=== PATIENT | female | born 1940 | race Caucasian/White ===

== ENCOUNTER 2017-01-27 21:23 | Inpatient (IN) | payer OTHER, MEDICARE ==
[~2017-01-27] VITALS: Ht 162.6 cm; Wt 43.9 kg
[~2017-01-27 21:23] MED LIST: ALBU6.7H INH; ATOR40TA49 PO; CARV3.125 PO; CYMB60CA PO; DOCU1CAP39 PO; DUONI NEB; GABA300 PO; MIRTA15 PO; MONT10 PO; MVI PO; PANT40IN3 PO; PROC1TAB8 PO; ROPI.5 PO; SENN8.6T19 PO; SYMB160A INH; THEO200T27 PO; TIOT18I INH; TRAM50 PO; Z.0.OXYGEN INH
[2017-01-27 21:31] VITALS: BP 157/103; PULSE 112; RESP 24; TEMP 98.1; O2SAT 99
[2017-01-27 21:36] VITALS: BP 157/103; PULSE 113; RESP 28; O2SAT 98
[2017-01-27] MEDS ORDERED: TRAM50TA PO (21:49)
[2017-01-27] MEDS ORDERED: GABA600T PO (21:49)
[2017-01-27] MEDS ORDERED: CARV12.52 PO (21:49)
[2017-01-27] MEDS ORDERED: LORA-373 PO (21:49)
[2017-01-27] MEDS ORDERED: LOVA20TA PO (21:49)
[2017-01-27] MEDS ORDERED: NITR0.4S SL (21:49)
[2017-01-27] MEDS ORDERED: AMLO5TAB2 PO (21:49)
[2017-01-27] MEDS ORDERED: MONT10TA4 PO (21:49)
[2017-01-27] MEDS ORDERED: CARV6.252 PO (21:49)
[2017-01-27] MEDS ORDERED: PANT40TA3 PO (21:49)
[2017-01-27] MEDS ORDERED: SULF1TAB23 PO (21:49)
[2017-01-27] MEDS ORDERED: IBUP-232 PO (21:49)
[2017-01-27] MEDS ORDERED: FLUT1INH7 INH (21:49)
[2017-01-27] MEDS ORDERED: ROPI0.5T PO (21:49)
[2017-01-27] MEDS ORDERED: PARO20TA2 PO (21:49)
[2017-01-27] MEDS: RESP: ALBUTEROL 2.5 MG/IPRATROPIUM 0.5 MG NEB (SCH) INH (21:55)
[2017-01-27 22:07] LABS: AUTOMATED NEUTROPHIL # 5.4 TH/MM3 (1.8-7.7); BASOPHIL # 0.1 TH/MM3 (0-0.2); BASOPHIL % 1.2 % (0.0-2.0); EOSINOPHIL # 0.2 TH/MM3 (0-0.4); HEMATOCRIT 40.3 % (35.0-46.0); HEMO FLAGS DIFF FINAL; LYMPH % 24.1 % (9.0-44.0); MEAN CELL VOLUME 85.3 FL (80.0-100.0); MONO % 7.6 % (0.0-8.0); NEUT % 65.1 % (16.0-70.0); PLATELET COUNT 247 TH/MM3 (150-450); RED BLOOD COUNT 4.73 MIL/MM3 (4.00-5.30); RED CELL DISTRIBUTION WIDTH 16.7 % (11.6-17.2); WHITE BLOOD COUNT 8.4 TH/MM3 (4.0-11.0)
--- NOTE | 2017-01-27 22:31 | PD ---
HPI Chief Complaint: Respiratory Symptoms Time Seen by Provider: 21:44 Travel History International Travel<30 days: No Contact w/Intl Traveler<30days: No Traveled to known affect area: No History of Present Illness HPI This 76 year-old woman presents to the emergency department cleaning shortness of breath ongoing for the past several days associated with increased cough, increased sputum production. She takes home albuterol which wasn't really helping. She is a history of COPD, is on 2.5 L nasal cannula at home. No chest pain. Family called EMS. She was given 2 albuterol and 125 mg of IV so a Medrol in route. Please were initially on scene because patient was making passive wish statements regarding her worsening trouble breathing and not being able to live like that. Patient denies any suicidality or ongoing similar symptoms now. History Past Medical History Narrative Medical COPD Hypertension Menopausal: Yes Social History Alcohol Use: No Tobacco Use: Yes (/ PPD) Allergies-Medications (Allergen,Severity, Reaction): Coded Allergies: Benadryl (Verified Allergy, Severe, TACHYCARDIA, 01/27/17) Reported Meds & Prescriptions Reported Meds & Active Scripts Active Reported Sulfamethoxazole-Trimethoprim 800-160 Mg Tab 1 Tab PO BID Pantoprazole (Pantoprazole Sodium) 40 Mg Tab 40 Mg PO DAILY Tramadol (Tramadol HCl) 50 Mg Tab 50 Mg PO Q6H PRN Breo Ellipta Inh (Fluticasone/Vilanterol) 200-25 Mcg/Act Inh 1 Puff INH DAILY Use daily at the same time. Paroxetine (Paroxetine HCl) 20 Mg Tab 20 Mg PO DAILY Nitrostat SL (Nitroglycerin) 0.4 Mg Subl 0.4 Mg SL DIRECTED PRN 1 tablet under the tongue as needed for chest pain. Repeat every 5 minutes for a total of 3 DOSES or call 911 if NO relief. Lovastatin 20 Mg Tab 20 Mg PO DAILY Amlodipine (Amlodipine Besylate) 5 Mg Tab 5 Mg PO DAILY Montelukast (Montelukast Sodium) 10 Mg Tab 10 Mg PO HS Lorazepam 0.5 Mg Tab 0.5 Mg PO HS PRN Gabapentin 600 Mg Tab 600 Mg PO BID Ropinirole 0.5 Mg Tab 0.5 Mg PO HS Carvedilol 6.25 Mg Tab 6.25 Mg PO HS Carvedilol 12.5 Mg Tab 12.5 Mg PO AC BREAKFAST Ibuprofen 600 Mg Tab 600 Mg PO Q6H PRN Review of Systems Except as stated in HPI: all other systems reviewed are Neg Physical Exam Narrative GENERAL: Thin 76 year-old woman, mild respiratory distress. SKIN: Focused skin assessment warm/dry. NECK: Trachea midline. No JVD. CARDIOVASCULAR: Regular rate and rhythm. No murmur appreciated. RESPIRATORY: Moderate diffuse wheezing with prolonged expiratory phase. Mild respiratory distress. GASTROINTESTINAL: Abdomen soft, non-tender, nondistended. Hepatic and splenic margins not palpable. MUSCULOSKELETAL: No obvious deformities. No edema. Decreased muscle bulk. NEUROLOGICAL: Awake and alert. No obvious cranial nerve deficits. Motor grossly within normal limits. Normal speech. PSYCHIATRIC: Appropriate mood and affect; insight and judgment normal. Data Data Last Documented VS Vital Signs Date Time Temp Pulse Resp B/P Pulse Ox O2 Delivery O2 Flow Rate FiO2 01/27/17 22:35 100 16 154/94 97 2 01/27/17 21:36 Nasal Cannula 01/27/17 21:31 98.1 Orders Complete Blood Count With Diff (01/27/17 21:42) Comprehensive Metabolic Panel (01/27/17 21:42) Chest, Single Ap (01/27/17 ) Influenzae A/B Antigen (01/27/17 21:42) Albuterol-Ipratropium Neb (Duoneb Neb) (01/27/17 21:45) Acetaminophen (Tylenol) (01/27/17 22:45) Admit Order (Ed Use Only) (01/27/17 ) Labs Laboratory Tests Test 01/27/17 21:30 White Blood Count 8.4 TH/MM3 Red Blood Count 4.73 MIL/MM3 Hemoglobin 13.7 GM/DL Hematocrit 40.3 % Mean Corpuscular Volume 85.3 FL Mean Corpuscular Hemoglobin 29.0 PG Mean Corpuscular Hemoglobin 34.0 % Concent Red Cell Distribution Width 16.7 % Platelet Count 247 TH/MM3 Mean Platelet Volume 8.8 FL Neutrophils (%) (Auto) 65.1 % Lymphocytes (%) (Auto) 24.1 % Monocytes (%) (Auto) 7.6 % Eosinophils (%) (Auto) 2.0 % Basophils (%) (Auto) 1.2 % Neutrophils # (Auto) 5.4 TH/MM3 Lymphocytes # (Auto) 2.0 TH/MM3 Monocytes # (Auto) 0.6 TH/MM3 Eosinophils # (Auto) 0.2 TH/MM3 Basophils # (Auto) 0.1 TH/MM3 CBC Comment DIFF FINAL Differential Comment Sodium Level 141 MEQ/L Potassium Level 4.1 MEQ/L Chloride Level 104 MEQ/L Carbon Dioxide Level 29.2 MEQ/L Anion Gap 8 MEQ/L Blood Urea Nitrogen 13 MG/DL Creatinine 0.73 MG/DL Estimat Glomerular Filtration 78 ML/MIN Rate Random Glucose 104 MG/DL Calcium Level 9.1 MG/DL Total Bilirubin 0.5 MG/DL Aspartate Amino Transf 25 U/L (AST/SGOT) Alanine Aminotransferase 18 U/L (ALT/SGPT) Alkaline Phosphatase 64 U/L Total Protein 6.5 GM/DL Albumin 3.6 GM/DL [facility] Medical Decision Making Medical Screen Exam Complete: Yes Emergency Medical Condition: Yes Interpretation(s) My review of EKG: Sinus tachycardia rate of 112, left axis deviation, probable right bundle branch block, no definite evidence of acute ischemia. LABS: CBC unremarkable CMP unremarkable Chest x-ray: Suspected chronic hyperinflation and COPD. Differential Diagnosis COPD exacerbation, pneumonia, influenza, URI, other Narrative Course Medical decision making INITIAL: This 76 year-old woman known COPD who presents emergent part evidence of COPD exacerbation with increased cough, increased sputum production, increased shortness of breath, improvement with bronchodilators and steroids. We'll check x-ray, labs, EKG, reassess. FINAL: Patient improved after initial treatment for COPD exacerbation the still with moderate respiratory distress and tachypnea. We'll plan on admission for observation. Diagnosis Primary Impression: COPD with exacerbation Virgilio Terry MD Jan 27, 2017 22:31
[2017-01-27 22:35] VITALS: BP 154/94; PULSE 100; RESP 16; O2SAT 97
[2017-01-27 22:41] LABS: ALKALINE PHOSPHATASE 64 U/L (45-117); ALT (GPT) 18 U/L (10-53); ANION GAP 8 MEQ/L (5-15); AST (GOT) 25 U/L (15-37); BICARBONATE 29.2 MEQ/L (21.0-32.0); BLOOD UREA NITROGEN 13 MG/DL (7-18); CHLORIDE 104 MEQ/L (98-107); GLOMERULAR FILTRATION RATE 78 ML/MIN (>89); POTASSIUM 4.1 MEQ/L (3.5-5.1); SODIUM (NA) 141 MEQ/L (136-145); TOTAL BILIRUBIN ADULT 0.5 MG/DL (0.2-1.0)
[2017-01-27] MEDS ORDERED: ACETAMINOPHEN 325 MG TAB PO ONE (22:45)
--- NOTE | 2017-01-27 22:52 | RADRPT ---
EXAM DATE/TIME: 01/27/2017 21:56 [facility] COMPARISON: No previous studies available for comparison. INDICATIONS : Shortness of breath MEDICAL HISTORY : None. SURGICAL HISTORY : None. ENCOUNTER: Initial ACUITY: 1 day PAIN SCORE: 0/10 LOCATION: Bilateral chest FINDINGS: The heart size is normal. the lungs are hyperinflated. A definite consolidation is not clearly seen. There is some increased density at the lateral right lower chest likely related to over lap of the breast soft tissues. No effusion is seen. The bones are osteopenic. CONCLUSION: Suspected chronic hyperinflation and COPD. Moe Banks MD on January 27, 2017 at 22:48 Board Certified Radiologist. This report was verified electronically.
[2017-01-27 23:00] VITALS: O2SAT 97
[2017-01-27 23:10] VITALS: BP 134/60; PULSE 92; RESP 18; O2SAT 97
[2017-01-27] MEDS ORDERED: ONDANSETRON HCL 4 MG/2 ML VIAL IVP PRN (23:30)
[2017-01-27] MEDS ORDERED: BISACODYL 10 MG SUPP RECTAL PRN (23:30)
[2017-01-27] MEDS ORDERED: RESP: ALBUTEROL 2.5 MG/IPRATROPIUM 0.5 MG NEB (PRN) NEB (23:30)
[2017-01-27] MEDS ORDERED: ACETAMINOPHEN 325 MG TAB PO PRN (23:30)
[2017-01-27] MEDS ORDERED: MORPHINE SULFATE 4 MG/ML INJ IV PRN (23:30)
--- NOTE | 2017-01-27 23:31 | HHI.HP ---
HPI Service [facility] Primary Care Physician Jairo Murillo MD Admission Diagnosis COPD exacerbation Diagnoses: (1) COPD (chronic obstructive pulmonary disease) Diagnosis: Principal (2) Depression Diagnosis: Principal (3) HTN (hypertension) Diagnosis: Principal (4) Tobacco abuse Diagnosis: Principal Travel History International Travel<30 Days: No Contact w/Intl Traveler <30 Da: No Traveled to Known Affected Are: No History of Present Illness This is a 76-year-old female with a PMH of HTN, Major Depression and COPD, O2 Dependent, who was brought to the ER by EMS secondary to increasing SOB and cough. Per patient, used home nebulizers w/ minimal improvement. S/p Solu- Medrol and Albuterol x2 by EMS. On arrival, BP 154/94, HR 100, O2 sat 97% on 2L NC, Afebrile. CBC unremarkable. Chemistry essentially unremarkable. CXR was suspected chronic hyperinflation and COPD. S/p DuoNeb in ER, however persistent SOB and occasional wheezing. Review of Systems Except as stated in HPI: all other systems reviewed are Neg ROS: 14 point review of systems otherwise negative. Past Family Social History Past Medical History PMH: HTN, Major Depression and COPD, O2 Dependent Past Surgical History PAST SURGICAL HISTORY: Appendectomy, Cholecystectomy, Bladder Surgery Allergies: Coded Allergies: Benadryl (Verified Allergy, Severe, TACHYCARDIA, 01/27/17) Family History PAST FAMILY HISTORY: Reviewed. No h/o DM or CAD Social History PAST SOCIAL HISTORY: Negative for alcohol, tobacco or drugs. Physical Exam Vital Signs Vital Signs Date Time Temp Pulse Resp B/P Pulse Ox O2 Delivery O2 Flow Rate FiO2 01/27/17 22:35 100 16 154/94 97 2 01/27/17 21:36 104 28 98 Nasal Cannula 2 01/27/17 21:36 113 28 157/103 98 2 01/27/17 21:31 98.1 112 24 157/103 99 Physical Exam PE: GENERAL: Elderly female female in no acute distress. HEENT: PERRLA, EOMI. No scleral icterus or conjunctival pallor. No lid lag or facial droop. CARDIOVASCULAR: Regular rate and rhythm. No obvious murmurs to auscultation. No chest tenderness to palpation. RESPIRATORY: No obvious rhonchi, occasional wheezing. Clear to auscultation. Breath sounds mildly decreased at bases bilaterally GASTROINTESTINAL: Abdomen soft, non-tender, nondistended. BS normal. MUSCULOSKELETAL: Extremities without clubbing, cyanosis, or edema. No obvious deformities. NEUROLOGICAL: Awake, alert and oriented x4. No focal neurologic deficits. Moving both upper and lower extremities spontaneously. Laboratory Laboratory Tests Test 01/27/17 21:30 White Blood Count 8.4 Red Blood Count 4.73 Hemoglobin 13.7 Hematocrit 40.3 Mean Corpuscular Volume 85.3 Mean Corpuscular Hemoglobin 29.0 Mean Corpuscular Hemoglobin 34.0 Concent Red Cell Distribution Width 16.7 Platelet Count 247 Mean Platelet Volume 8.8 Neutrophils (%) (Auto) 65.1 Lymphocytes (%) (Auto) 24.1 Monocytes (%) (Auto) 7.6 Eosinophils (%) (Auto) 2.0 Basophils (%) (Auto) 1.2 Neutrophils # (Auto) 5.4 Lymphocytes # (Auto) 2.0 Monocytes # (Auto) 0.6 Eosinophils # (Auto) 0.2 Basophils # (Auto) 0.1 CBC Comment DIFF FINAL Differential Comment Sodium Level 141 Potassium Level 4.1 Chloride Level 104 Carbon Dioxide Level 29.2 Anion Gap 8 Blood Urea Nitrogen 13 Creatinine 0.73 Estimat Glomerular Filtration 78 Rate Random Glucose 104 Calcium Level 9.1 Total Bilirubin 0.5 Aspartate Amino Transf 25 (AST/SGOT) Alanine Aminotransferase 18 (ALT/SGPT) Alkaline Phosphatase 64 Total Protein 6.5 Albumin 3.6 Date/Time Procedure Status Source Growth 01/27/17 21:40 Influenza Types A,B Antigen (BECCA) - Final Complete Nasal Washing NEGATIVE FOR FLU A AND B ANTIGEN.... Result Diagram: 01/27/17212901/27/172129 Assessment and Plan Problem List: (1) COPD (chronic obstructive pulmonary disease) ICD Code: J44.9 Status: Acute (2) HTN (hypertension) ICD Code: I10 Status: Acute (3) Depression ICD Code: F32.9 Status: Acute (4) Tobacco abuse ICD Code: Z72.0 Status: Acute Assessment and Plan A/P: 1. COPD: Chronic Respiratory Failure w/ Acute Exacerbation, O2 Dependent on 2.5L NC at home, O2 sat 97% on 2L NC while in ER. +wheezing, decreased breath sounds on exam, s/p Solu-Medrol and DuoNeb in ER w/ some improvement. CXR w/ hyperinflation/COPD, images reviewed by me. Continue Solu-Medrol, DuoNeb, Symbicort, Mucinex, monitor O2. 2. HTN: Resume home medications, monitor BP. 3. Depression: Resume home Paroxetine. No acute depression noted. 4. DVT Prophylaxis: SCD/Teds. 5. Social work for d/c planning as needed. 6. Case discussed w/ ER physician at length. Trudy Bang MD Jan 27, 2017 23:30
[2017-01-28] VITALS (12 sets, daily range): BP systolic 81–130; BP diastolic 54–65; PULSE 62–95; RESP 16–20; TEMP 97.5–98.8; O2SAT 94–98
[2017-01-28] MEDS: methylPREDNISolone SOD SUCC 40 MG/1 ML VIAL IV PUSH SCH ×5 (00:14→23:20)
[2017-01-28] MEDS ORDERED: SODIUM CHLORID 0.9% 500 ML INJ 500 ML IV ONE (04:00)
[2017-01-28] MEDS: SODIUM CHLORIDE 0.9% FLUSH 10 ML FLUSH IV FLUSH PRN ×2 (06:27→23:21)
[2017-01-28] MEDS: PANTOPRAZOLE SOD 40 MG DELAYED RELEASE TAB PO SCH (06:27)
[2017-01-28] MEDS: CARVEDILOL 12.5 MG TAB PO SCH (06:27)
[2017-01-28 06:44] LABS: AUTOMATED NEUTROPHIL # 2.9 TH/MM3 (1.8-7.7); EOSINOPHIL % 0.5 % (0.0-4.0); HEMATOCRIT 41.1 % (35.0-46.0); LYMPH % 7.7 % (9.0-44.0); LYMPHOCYTE # 0.2 TH/MM3 (1.0-4.8); MEAN CELL VOLUME 86.7 FL (80.0-100.0); MEAN CORPUSCULAR HEMOGLOBIN 27.4 PG (27.0-34.0); MEAN CORPUSCULAR HGB CONC 31.6 % (32.0-36.0); MONO % 1.4 % (0.0-8.0); NEUT % 90.4 % (16.0-70.0); PLATELET COUNT 189 TH/MM3 (150-450); RED BLOOD COUNT 4.74 MIL/MM3 (4.00-5.30); RED CELL DISTRIBUTION WIDTH 16.7 % (11.6-17.2); WHITE BLOOD COUNT 3.2 TH/MM3 (4.0-11.0)
[2017-01-28 06:57] LABS: HEMO FLAGS AUTO DIFF
[2017-01-28 07:03] LABS: ALT (GPT) 18 U/L (10-53); ANION GAP 10 MEQ/L (5-15); AST (GOT) 10 U/L (15-37); BICARBONATE 25.6 MEQ/L (21.0-32.0); BLOOD UREA NITROGEN 13 MG/DL (7-18); CHLORIDE 106 MEQ/L (98-107); GLOMERULAR FILTRATION RATE 90 ML/MIN (>89); POTASSIUM 3.6 MEQ/L (3.5-5.1); SODIUM (NA) 142 MEQ/L (136-145)
[2017-01-28 07:04] LABS: ALKALINE PHOSPHATASE 58 U/L (45-117); TOTAL BILIRUBIN ADULT 0.3 MG/DL (0.2-1.0)
[2017-01-28] MEDS: RESP: ALBUTEROL 2.5 MG/IPRATROPIUM 0.5 MG NEB (SCH) NEB ×4 (07:08→20:34)
[2017-01-28] MEDS: SODIUM CHLORIDE 0.9% FLUSH 10 ML FLUSH IV FLUSH SCH ×2 (09:20→19:53)
[2017-01-28] MEDS: BUDESONIDE-FORMOTEROL 160/4.5 MCG INHALER INH SCH ×2 (09:20→19:54)
[2017-01-28] MEDS: guaiFENesin E.R. 600 MG TAB PO SCH ×2 (09:20→19:50)
[2017-01-28] MEDS: GABAPENTIN 300 MG CAP PO SCH ×2 (09:20→19:53)
[2017-01-28] MEDS: PARoxetine HCL 20 MG TAB PO SCH (09:20)
[2017-01-28] MEDS: amLODIPine BESYLATE 5 MG TAB PO SCH (09:21)
[2017-01-28 10:10] LABS: BANDS 16 % (0-6); POLYS (SEG NEUTROPHILS) 77 % (16-70); WBC DIFF SAMPLE 100
[2017-01-28 10:11] LABS: PLATELET ESTIMATE SMEAR NORMAL (NORMAL); PLATELET MORPHOLOGY NORMAL (NORMAL); SCAN/DIFF FINAL DIFF MANUAL
--- NOTE | 2017-01-28 10:16 | HHI.PR ---
Subjective Remarks Follow up for COPD exacerbation. The patient reports recent worsening SOB and TIMMONS with cough but no fevers/chills. She has improved slightly since her arrival. The patient uses 2.5-3L O2 via NC at home. She also has Symbicort, albuterol inhaler, nebulizer. She does not see a computer systems manager regularly however believes she has been referred to Dr. Clyde Flaherty in the past. She is inquiring about SNF vs SNF placement, unable to care for self recently. Objective Vitals Vital Signs Date Time Temp Pulse Resp B/P Pulse Ox O2 Delivery O2 Flow Rate FiO2 01/28/17 09:09 97.8 67 18 118/60 95 01/28/17 07:08 94 Nasal Cannula 2.00 01/28/17 04:56 98.7 88 18 130/59 97 01/28/17 01:25 84 01/28/17 01:17 98.8 91 18 81/56 98 01/28/17 00:19 95 16 121/63 96 2 01/27/17 23:10 92 18 134/60 97 2 01/27/17 23:00 97 Nasal Cannula 2.00 01/27/17 22:35 100 16 154/94 97 2 01/27/17 21:36 104 28 98 Nasal Cannula 2 01/27/17 21:36 113 28 157/103 98 2 01/27/17 21:31 98.1 112 24 157/103 99 Result Diagram: 01/28/17 0607 01/28/17 0607 Imaging Last Impressions Chest X-Ray 01/27/17 0000 Signed Impressions: Service Date/Time: Friday, January 27, 2017 21:56 - CONCLUSION: Suspected chronic hyperinflation and COPD. Moe Banks MD Objective Remarks GENERAL: Well-nourished, well-developed thin elderly female patient in [facility]. SKIN: Warm and dry. No rash. HEENT: Normocephalic. Atraumatic.Pupils equal and round. Mucous membranes pink and moist. NECK: Supple. Trachea midline. CARDIOVASCULAR: Regular rate and rhythm. S1, S2 noted. No murmur appreciated. RESPIRATORY: No accessory muscle use. Very poor air movement throughout all lung fischer. Breath sounds equal bilaterally. GASTROINTESTINAL: Abdomen soft, non-tender, nondistended. Normoactive bowel sounds x4. MUSCULOSKELETAL: No obvious deformities. Extremities without clubbing, cyanosis , or edema. NEUROLOGICAL: Awake and alert. No obvious cranial nerve deficits. Motor grossly within normal limits. Normal speech. PSYCHIATRIC: Appropriate mood and affect; insight and judgment normal. Medications and IVs Current Medications Medications (Trade) Dose Ordered Sig/Raimundo Route Start Time Stop Time Status Last Admin (SoluMEDROL INJ) 40 mg Q6HR IV PUSH 01/28/17 00:00 01/28/17 06:27 (Symbicort 160-4.5 Inh) 2 puff Q12HR INH 01/28/17 09:00 01/28/17 09:20 (Mucinex Er) 600 mg BID PO 01/28/17 09:00 01/28/17 09:20 (NS Flush) 2 ml UNSCH PRN IV FLUSH 01/27/17 23:30 01/28/17 06:27 (NS Flush) 2 ml BID IV FLUSH 01/28/17 09:00 01/28/17 09:20 (Zofran Inj) 4 mg Q6H PRN IVP 01/27/17 23:30 (Dulcolax Supp) 10 mg DAILY PRN RECTAL 01/27/17 23:30 (Tylenol) 650 mg Q6H PRN PO 01/27/17 23:30 ([place] 5-325 Mg) 1 tab Q4H PRN PO 01/27/17 23:30 (Morphine Inj) 2 mg Q3H PRN IV 01/27/17 23:30 (Norvasc) 5 mg DAILY PO 01/28/17 09:00 01/28/17 09:21 (Coreg) 6.25 mg HS PO 01/28/17 21:00 (Neurontin) 600 mg BID PO 01/28/17 09:00 01/28/17 09:20 (Ativan) 0.5 mg HS PRN PO 01/27/17 23:30 (Pravachol) 20 mg HS PO 01/28/17 21:00 (Singulair) 10 mg HS PO 01/28/17 21:00 (Protonix) 40 mg DAILY@06 PO 01/28/17 06:00 01/28/17 06:27 (Paxil) 20 mg DAILY PO 01/28/17 09:00 01/28/17 09:20 (Requip) 0.5 mg HS PO 01/28/17 21:00 Urinary Catheter: No Vascular Central Line Catheter: No A/P Problem List: (1) COPD (chronic obstructive pulmonary disease) ICD Code: J44.9 Status: Acute (2) HTN (hypertension) ICD Code: I10 Status: Acute (3) Depression ICD Code: F32.9 Status: Acute (4) Tobacco abuse ICD Code: Z72.0 Status: Acute Assessment and Plan 76-year-old female with a PMH of HTN, Major Depression and COPD, O2 Dependent, who was brought to the ER by EMS secondary to increasing SOB and cough. COPD: Severe Chronic Respiratory Failure w/ Acute Exacerbation, O2 Dependent on 2.5-3L NC at home, O2 sat 97% on 2L NC while in ER. +wheezing, decreased breath sounds on exam. CXR w/ hyperinflation/COPD, images reviewed by me. Continue IV Solu-Medrol, DuoNeb, Symbicort, Mucinex, monitor O2. Start on Levaquin 750mg daily. Outpatient f/up with a computer systems manager. HTN: Resume home medications, monitor BP. Depression: Resume home Paroxetine. No acute depression noted. Inability to Care for Self: case management consult for possible SNF placement. DVT Prophylaxis: SCD/Teds. Written by Yulissa Staples, acting as scribe for Dr. Parada on 01/28/17 at 11:43 All or portions of this note were transcribed by scribe TWAN Beckford. I , Dr. Evan Parada personally performed the history, physical exam, and medical decision making; and confirmed the accuracy of the information in the transcribed note. Authenticated by Dr. Evan Parada on 01/28/17 at 23:14. Discharge Planning Patient inquiring about [facility] vs SNF. Case management consulted to assist with placement. Yulissa Staples PA-C Jan 28, 2017 10:16 Ramy Parada DO Jan 28, 2017 23:15
[2017-01-28] MEDS: ACETAMINOPHEN/HYDROcodone 325 MG/5 MG TAB PO PRN ×2 (11:51→19:54)
[2017-01-28] MEDS: LEVOFLOXACIN 750 MG TAB PO SCH (13:41)
--- NOTE | 2017-01-28 14:30 | EKG ---
Date Performed: 01/27/2017 Time Performed: 21:33:07 PTAGE: 76 years EKG: SINUS TACHYCARDIA POSSIBLE RIGHT ATRIAL ENLARGEMENT LEFT ATRIAL ENLARGEMENT LEFT ANTERIOR F ASCICULAR BLOCK SEPTAL MYOCARDIAL INFARCTION ABNORMAL ECG NO PREVIOUS TRACING DOCTOR: Bao Santoro Interpretating Date/Time 01/28/2017 14:25:22
[2017-01-28] MEDS: CARVEDILOL 6.25 MG TAB PO SCH (19:50)
[2017-01-28] MEDS: PRAVASTATIN SOD 20 MG TAB PO SCH (19:53)
[2017-01-28] MEDS: MONTELUKAST SODIUM 10 MG TAB PO SCH (19:53)
[2017-01-28] MEDS: LORazepam 0.5 MG TAB PO PRN (23:20)
[2017-01-29] VITALS (9 sets, daily range): BP systolic 107–135; BP diastolic 56–68; PULSE 60–88; RESP 14–24; TEMP 97.6–98.8; O2SAT 90–98
[2017-01-29] MEDS: methylPREDNISolone SOD SUCC 40 MG/1 ML VIAL IV PUSH SCH (05:42)
[2017-01-29] MEDS: CARVEDILOL 12.5 MG TAB PO SCH (05:42)
[2017-01-29] MEDS: PANTOPRAZOLE SOD 40 MG DELAYED RELEASE TAB PO SCH (05:42)
[2017-01-29 07:13] LABS: BICARBONATE 29.8 MEQ/L (21.0-32.0); POTASSIUM 4.5 MEQ/L (3.5-5.1)
[2017-01-29 07:24] LABS: AUTOMATED NEUTROPHIL # 12.6 TH/MM3 (1.8-7.7); BASOPHIL % 0.1 % (0.0-2.0); HEMATOCRIT 38.5 % (35.0-46.0); HEMO FLAGS DIFF FINAL; LYMPH % 3.9 % (9.0-44.0); LYMPHOCYTE # 0.5 TH/MM3 (1.0-4.8); MEAN CELL VOLUME 86.3 FL (80.0-100.0); MEAN CORPUSCULAR HGB CONC 31.3 % (32.0-36.0); MONO % 1.7 % (0.0-8.0); NEUT % 94.3 % (16.0-70.0); PLATELET COUNT 212 TH/MM3 (150-450); RED BLOOD COUNT 4.46 MIL/MM3 (4.00-5.30); RED CELL DISTRIBUTION WIDTH 16.8 % (11.6-17.2); WHITE BLOOD COUNT 13.4 TH/MM3 (4.0-11.0)
[2017-01-29] MEDS: RESP: ALBUTEROL 2.5 MG/IPRATROPIUM 0.5 MG NEB (SCH) NEB ×4 (07:49→19:58)
--- NOTE | 2017-01-29 08:14 | HHI.PR ---
Subjective Remarks Follow up for COPD exacerbation. The patient reports continued cough and chest congestion with shortness of breath. No fevers or chills. She also complains of right lower back pain and spasms, not relieved by [place]. Denies any other medical complaints at this time. Objective Vitals Vital Signs Date Time Temp Pulse Resp B/P Pulse Ox O2 Delivery O2 Flow Rate FiO2 01/29/17 07:50 97 Nasal Cannula 2.50 01/29/17 07:49 97.6 65 24 116/65 97 01/29/17 03:34 97.8 79 14 110/68 94 01/29/17 00:12 98.8 72 16 107/56 96 01/28/17 21:29 70 01/28/17 21:10 16 01/28/17 20:37 98 Nasal Cannula 2.00 01/28/17 20:02 97.8 75 18 117/58 97 01/28/17 16:16 97.5 75 20 108/54 98 01/28/17 11:53 97.8 68 20 129/65 97 01/28/17 09:09 97.8 67 18 118/60 95 Result Diagram: 01/29/17 0611 01/29/17 0611 Imaging Last Impressions Chest X-Ray 01/27/17 0000 Signed Impressions: Service Date/Time: Friday, January 27, 2017 21:56 - CONCLUSION: Suspected chronic hyperinflation and COPD. Moe Banks MD Objective Remarks GENERAL: Well-nourished, well-developed thin elderly female patient in [facility]. SKIN: Warm and dry. No rash. HEENT: Normocephalic. Atraumatic.Pupils equal and round. Mucous membranes pink and moist. NECK: Supple. Trachea midline. CARDIOVASCULAR: Regular rate and rhythm. S1, S2 noted. No murmur appreciated. RESPIRATORY: No accessory muscle use. Very poor air movement throughout all lung fischer. Breath sounds equal bilaterally. GASTROINTESTINAL: Abdomen soft, non-tender, nondistended. Normoactive bowel sounds x4. MUSCULOSKELETAL: No obvious deformities. Extremities without clubbing, cyanosis , or edema. Right lumbar paraspinous muscle tight consistent with spasms. NEUROLOGICAL: Awake and alert. No obvious cranial nerve deficits. Motor grossly within normal limits. Normal speech. PSYCHIATRIC: Appropriate mood and affect; insight and judgment normal. Medications and IVs Current Medications Medications (Trade) Dose Ordered Sig/Raimundo Route Start Time Stop Time Status Last Admin (SoluMEDROL INJ) 40 mg Q6HR IV PUSH 01/28/17 00:00 01/29/17 05:42 (Symbicort 160-4.5 Inh) 2 puff Q12HR INH 01/28/17 09:00 01/28/17 19:54 (Mucinex Er) 600 mg BID PO 01/28/17 09:00 01/28/17 19:50 (NS Flush) 2 ml UNSCH PRN IV FLUSH 01/27/17 23:30 01/28/17 23:21 (NS Flush) 2 ml BID IV FLUSH 01/28/17 09:00 01/28/17 19:53 (Zofran Inj) 4 mg Q6H PRN IVP 01/27/17 23:30 (Dulcolax Supp) 10 mg DAILY PRN RECTAL 01/27/17 23:30 (Tylenol) 650 mg Q6H PRN PO 01/27/17 23:30 ([place] 5-325 Mg) 1 tab Q4H PRN PO 01/27/17 23:30 01/28/17 19:54 (Morphine Inj) 2 mg Q3H PRN IV 01/27/17 23:30 (Norvasc) 5 mg DAILY PO 01/28/17 09:00 01/28/17 09:21 (Coreg) 6.25 mg HS PO 01/28/17 21:00 01/28/17 19:50 (Neurontin) 600 mg BID PO 01/28/17 09:00 01/28/17 19:53 (Ativan) 0.5 mg HS PRN PO 01/27/17 23:30 01/28/17 23:20 (Pravachol) 20 mg HS PO 01/28/17 21:00 01/28/17 19:53 (Singulair) 10 mg HS PO 01/28/17 21:00 01/28/17 19:53 (Protonix) 40 mg DAILY@06 PO 01/28/17 06:00 01/29/17 05:42 (Paxil) 20 mg DAILY PO 01/28/17 09:00 01/28/17 09:20 (Requip) 0.5 mg HS PO 01/28/17 21:00 01/28/17 19:53 (Levaquin) 750 mg DAILY@11 PO 01/28/17 13:00 01/28/17 13:41 Urinary Catheter: No Vascular Central Line Catheter: No A/P Problem List: (1) COPD (chronic obstructive pulmonary disease) ICD Code: J44.9 Status: Acute (2) HTN (hypertension) ICD Code: I10 Status: Acute (3) Depression ICD Code: F32.9 Status: Acute (4) Tobacco abuse ICD Code: Z72.0 Status: Acute Assessment and Plan 76-year-old female with a PMH of HTN, Major Depression and COPD, O2 Dependent, who was brought to the ER by EMS secondary to increasing SOB and cough. Acute on Chronic Respiratory Failure secondary to Severe COPD Exacerbation: O2 Dependent on 2.5-3L NC at home. RR 28 upon arrival with labored breathing, + wheezing, decreased breath sounds on exam. CXR w/ hyperinflation/COPD, images reviewed by me. Continue IV Solu-Medrol, DuoNeb, Symbicort, Mucinex, Levaquin 750mg daily. Needs to follow with pulmonology as outpatient. Patient not much better today 01/29, Increased IV Solumedrol to 60mg q6h. Add Acapella. Repeat CXR PA/Lateral. Admit to inpatient. Consider chest CT if no improvement today. HTN: Resume home medications, monitor BP. Depression: Resume home Paroxetine. No acute depression noted. Generalized Weakness, Inability to Care for Self: case management consult for possible SNF placement. Consult PT. Right Lumbar Paraspinous Muscle Spasm/Strain: continue [place] prn. Add Flexeril 5mg q8h prn and Lidoderm patch. DVT Prophylaxis: SCD/Teds. Written by Yulissa Staples, acting as scribe for Dr. Parada on 01/29/17 at 09:50 All or portions of this note were transcribed by [email or web address] Isaac. I , Dr. Evan Parada personally performed the history, physical exam, and medical decision making; and confirmed the accuracy of the information in the transcribed note. Authenticated by Dr. Evan Parada on 01/29/17 at 23:38. Discharge Planning Patient inquiring about RETIREMENT vs SNF. Case management consulted to assist with placement. Yulissa Staples PA-C Jan 29, 2017 08:14 Ramy Parada DO Jan 29, 2017 23:38
[2017-01-29] MEDS: GABAPENTIN 300 MG CAP PO SCH ×2 (08:32→19:48)
[2017-01-29] MEDS: amLODIPine BESYLATE 5 MG TAB PO SCH (08:33)
[2017-01-29] MEDS: guaiFENesin E.R. 600 MG TAB PO SCH ×2 (08:33→19:49)
[2017-01-29] MEDS: PARoxetine HCL 20 MG TAB PO SCH (08:33)
[2017-01-29] MEDS: ACETAMINOPHEN/HYDROcodone 325 MG/5 MG TAB PO PRN ×3 (08:33→19:50)
[2017-01-29] MEDS: BUDESONIDE-FORMOTEROL 160/4.5 MCG INHALER INH SCH ×2 (08:34→19:46)
[2017-01-29] MEDS: SODIUM CHLORIDE 0.9% FLUSH 10 ML FLUSH IV FLUSH SCH ×2 (08:37→19:47)
--- NOTE | 2017-01-29 10:42 | RADRPT ---
EXAM DATE/TIME: 01/29/2017 10:09 [facility] COMPARISON: No previous studies available for comparison. INDICATIONS : None given MEDICAL HISTORY : None given SURGICAL HISTORY : None given ENCOUNTER: None given ACUITY: None given PAIN SCORE: None given LOCATION: None given FINDINGS: PA lateral views the chest demonstrate significant hyperinflation without evidence of focal airspace consolidation or pneumothorax. Moderate cardiomegaly. Pulmonary vasculature appears normal in caliber . Osseous structures are osteopenic but otherwise unremarkable. CONCLUSION: Severe emphysematous change of the lungs. Cardiomegaly without evidence of congestive heart failure. Avril Mar MD on January 29, 2017 at 10:39 Board Certified Radiologist. This report was verified electronically.
[2017-01-29] MEDS ORDERED: CYCLOBENZAPRINE HCL 10 MG TAB PO ONE (11:00)
[2017-01-29] MEDS: SODIUM CHLORIDE 0.9% FLUSH 10 ML FLUSH IV FLUSH PRN ×3 (11:16→19:47)
[2017-01-29] MEDS: LEVOFLOXACIN 750 MG TAB PO SCH (11:16)
[2017-01-29] MEDS: methylPREDNISolone SOD SUCC 125 MG/2 ML VIAL IV PUSH SCH ×3 (11:17→23:19)
[2017-01-29] MEDS: LIDOCAINE HCL 5% PATCH T-DERMAL SCH (11:19)
[2017-01-29] MEDS: CYCLOBENZAPRINE HCL 10 MG TAB PO PRN (17:07)
[2017-01-29] MEDS: CARVEDILOL 6.25 MG TAB PO SCH (19:48)
[2017-01-29] MEDS: PRAVASTATIN SOD 20 MG TAB PO SCH (19:48)
[2017-01-29] MEDS: MONTELUKAST SODIUM 10 MG TAB PO SCH (19:48)
[2017-01-29] MEDS: REMOVE OLD PATCH T-DERMAL SCH (21:00)
[2017-01-29] MEDS: LORazepam 0.5 MG TAB PO PRN (21:56)
[2017-01-30] VITALS (9 sets, daily range): BP systolic 107–131; BP diastolic 54–62; PULSE 65–72; RESP 18–20; TEMP 97.8–98.5; O2SAT 95–98
[2017-01-30] MEDS: CYCLOBENZAPRINE HCL 10 MG TAB PO PRN ×3 (00:57→21:13)
[2017-01-30] MEDS: PANTOPRAZOLE SOD 40 MG DELAYED RELEASE TAB PO SCH (06:27)
[2017-01-30] MEDS: methylPREDNISolone SOD SUCC 125 MG/2 ML VIAL IV PUSH SCH ×3 (06:27→18:00)
[2017-01-30] MEDS: CARVEDILOL 12.5 MG TAB PO SCH (06:32)
[2017-01-30] MEDS: ACETAMINOPHEN/HYDROcodone 325 MG/5 MG TAB PO PRN ×2 (06:32→11:39)
[2017-01-30] MEDS: RESP: ALBUTEROL 2.5 MG/IPRATROPIUM 0.5 MG NEB (SCH) NEB ×4 (08:19→19:49)
[2017-01-30] MEDS: PARoxetine HCL 20 MG TAB PO SCH (09:41)
[2017-01-30] MEDS: GABAPENTIN 300 MG CAP PO SCH ×2 (09:41→21:12)
[2017-01-30] MEDS: guaiFENesin E.R. 600 MG TAB PO SCH ×2 (09:41→21:12)
[2017-01-30] MEDS: LIDOCAINE HCL 5% PATCH T-DERMAL SCH (09:41)
[2017-01-30] MEDS: amLODIPine BESYLATE 5 MG TAB PO SCH (09:41)
[2017-01-30] MEDS: LEVOFLOXACIN 750 MG TAB PO SCH (09:42)
[2017-01-30] MEDS: SODIUM CHLORIDE 0.9% FLUSH 10 ML FLUSH IV FLUSH SCH ×2 (09:43→21:12)
[2017-01-30] MEDS: BUDESONIDE-FORMOTEROL 160/4.5 MCG INHALER INH SCH ×2 (09:43→21:11)
[2017-01-30] MEDS: REMOVE OLD PATCH T-DERMAL SCH (21:00)
[2017-01-30] MEDS: MONTELUKAST SODIUM 10 MG TAB PO SCH (21:12)
[2017-01-30] MEDS: CARVEDILOL 6.25 MG TAB PO SCH (21:12)
[2017-01-30] MEDS: PRAVASTATIN SOD 20 MG TAB PO SCH (21:13)
--- NOTE | 2017-01-30 23:39 | HHI.PR ---
Subjective Remarks Follow up for COPD exacerbation. Patient is currently doing well. No acute concerns. Breathing better. No fever, chills. Objective Vitals Vital Signs Date Time Temp Pulse Resp B/P Pulse Ox O2 Delivery O2 Flow Rate FiO2 01/30/17 20:18 97.8 70 20 121/56 95 01/30/17 19:50 97 Nasal Cannula 3.00 01/30/17 16:00 98.5 72 18 107/54 98 01/30/17 12:45 20 01/30/17 12:00 98.3 71 18 119/57 97 01/30/17 08:22 98 Nasal Cannula 3.00 01/30/17 08:00 98.1 72 18 129/62 95 01/30/17 07:00 98 Nasal Cannula 3.00 01/30/17 04:00 98.0 65 18 131/60 98 01/30/17 00:00 97.9 67 18 116/57 96 I/O 01/29/17 01/29/17 01/29/17 01/30/17 01/30/17 01/30/17 07:00 15:00 23:00 07:00 15:00 23:00 Intake Total 240 ml 240 ml 960 ml 480 ml Balance 240 ml 240 ml 960 ml 480 ml Intake Oral 240 ml 240 ml 960 ml 480 ml IV Total 0 ml # Voids 1 1 1 3 # Bowel Movements 0 0 1 0 Result Diagram: 01/29/17 0611 01/29/17 0611 Imaging Last Impressions Chest X-Ray 01/29/17 0000 Signed Impressions: Service Date/Time: Sunday, January 29, 2017 10:09 - CONCLUSION: Severe emphysematous change of the lungs. Cardiomegaly without evidence of congestive heart failure. Avril Mar MD Objective Remarks GENERAL: AOX3, NAD. SKIN: Warm and dry. HEAD: Normocephalic. EYES: No scleral icterus. No injection or drainage. NECK: Supple, trachea midline. No JVD or lymphadenopathy. CARDIOVASCULAR: Regular rate and rhythm without murmurs, gallops, or rubs. RESPIRATORY: Poor air entry. Mild wheezes on expiration. GASTROINTESTINAL: Abdomen soft, non-tender, nondistended. MUSCULOSKELETAL: No cyanosis, or edema. BACK: Nontender without obvious deformity. No CVA tenderness. Procedures None. A/P Problem List: (1) COPD (chronic obstructive pulmonary disease) ICD Code: J44.9 Status: Acute (2) HTN (hypertension) ICD Code: I10 Status: Acute (3) Depression ICD Code: F32.9 Status: Acute (4) Tobacco abuse ICD Code: Z72.0 Status: Acute Assessment and Plan 76-year-old female with a PMH of HTN, Major Depression and COPD, O2 Dependent, who was brought to the ER by EMS secondary to increasing SOB and cough. Acute on Chronic Respiratory Failure secondary to Severe COPD Exacerbation: O2 Dependent on 2.5-3L NC at home. RR 28 upon arrival with labored breathing, + wheezing, decreased breath sounds on exam. CXR w/ hyperinflation/COPD, images reviewed by me. Continue IV Solu-Medrol, DuoNeb, Symbicort, Mucinex, Levaquin 750mg daily. Needs to follow with pulmonology as outpatient. Continue Acapella. Repeat CXR shows severe emphysema. - Discussed with CM. We will try to arrange SNF. Patient can work with SNF or PCP regarding [facility] arrangement. HTN: Resume home medications, monitor BP. Well controlled. Depression: Resume home Paroxetine. No acute depression noted. Generalized Weakness, Inability to Care for Self: case management consult for possible SNF placement. Consult PT. Right Lumbar Paraspinous Muscle Spasm/Strain: continue Tinnie prn. Flexeril 5mg q8h prn and Lidoderm patch. DVT Prophylaxis: SCD/Teds. Ramy Parada DO Jan 30, 2017 23:39
[2017-01-31] MEDS: methylPREDNISolone SOD SUCC 125 MG/2 ML VIAL IV PUSH SCH ×3 (00:26→12:23)
[2017-01-31 04:20] VITALS: BP 126/61; PULSE 64; RESP 18; TEMP 97.9; O2SAT 96
[2017-01-31] MEDS: PANTOPRAZOLE SOD 40 MG DELAYED RELEASE TAB PO SCH (05:29)
[2017-01-31] MEDS: CARVEDILOL 12.5 MG TAB PO SCH (06:22)
[2017-01-31 08:00] VITALS: BP 131/76; PULSE 68; RESP 18; TEMP 98; O2SAT 94
[2017-01-31] MEDS: SODIUM CHLORIDE 0.9% FLUSH 10 ML FLUSH IV FLUSH SCH (08:38)
[2017-01-31] MEDS: BUDESONIDE-FORMOTEROL 160/4.5 MCG INHALER INH SCH (08:38)
[2017-01-31] MEDS: guaiFENesin E.R. 600 MG TAB PO SCH (08:38)
[2017-01-31] MEDS: PARoxetine HCL 20 MG TAB PO SCH (08:39)
[2017-01-31] MEDS: CYCLOBENZAPRINE HCL 10 MG TAB PO PRN (08:39)
[2017-01-31] MEDS: LIDOCAINE HCL 5% PATCH T-DERMAL SCH (08:39)
[2017-01-31] MEDS: LEVOFLOXACIN 750 MG TAB PO SCH (08:39)
[2017-01-31] MEDS: GABAPENTIN 300 MG CAP PO SCH (08:39)
[2017-01-31] MEDS: amLODIPine BESYLATE 5 MG TAB PO SCH (08:40)
[2017-01-31] MEDS: RESP: ALBUTEROL 2.5 MG/IPRATROPIUM 0.5 MG NEB (SCH) NEB ×3 (09:11→16:24)
[2017-01-31 09:13] VITALS: O2SAT 97
[2017-01-31] MEDS ORDERED: HYDR-3516 PO (10:55)
[2017-01-31] MEDS ORDERED: PRED20 PO (10:55)
[2017-01-31] MEDS ORDERED: LEVA750T PO (10:55)
--- NOTE | 2017-01-31 10:56 | HHI.DS ---
Discharge Summary Admission Date Jan 29, 2017 at 10:30 Discharge Date: Jan 31, 2017 Admitting Diagnosis COPD exacerbation (1) COPD (chronic obstructive pulmonary disease) ICD Code: J44.9 Diagnosis: Principal (2) HTN (hypertension) ICD Code: I10 (3) Depression ICD Code: F32.9 (4) Tobacco abuse ICD Code: Z72.0 Procedures None. Brief History - From Admission This is a 76-year-old female with a PMH of HTN, Major Depression and COPD, O2 Dependent, who was brought to the ER by EMS secondary to increasing SOB and cough. Per patient, used home nebulizers w/ minimal improvement. S/p Solu- Medrol and Albuterol x2 by EMS. On arrival, BP 154/94, HR 100, O2 sat 97% on 2L NC, Afebrile. CBC unremarkable. Chemistry essentially unremarkable. CXR was suspected chronic hyperinflation and COPD. S/p DuoNeb in ER, however persistent SOB and occasional wheezing. CBC/BMP: 01/29/17 0611 01/29/17 0611 Significant Findings Laboratory Tests Test 01/29/17 06:11 White Blood Count 13.4 TH/MM3 (4.0-11.0) Mean Corpuscular Hemoglobin 31.3 % Concent (32.0-36.0) Neutrophils (%) (Auto) 94.3 % (16.0-70.0) Lymphocytes (%) (Auto) 3.9 % (9.0-44.0) Neutrophils # (Auto) 12.6 TH/MM3 (1.8-7.7) Lymphocytes # (Auto) 0.5 TH/MM3 (1.0-4.8) Blood Urea Nitrogen 25 MG/DL (7-18) Estimat Glomerular Filtration 71 ML/MIN (>89) Rate Random Glucose 141 MG/DL (74-106) Imaging Last Impressions Chest X-Ray 01/29/17 0000 Signed Impressions: Service Date/Time: Sunday, January 29, 2017 10:09 - CONCLUSION: Severe emphysematous change of the lungs. Cardiomegaly without evidence of congestive heart failure. Avril Mar MD PE at Discharge GENERAL: AOX3, NAD. SKIN: Warm and dry. HEAD: Normocephalic. EYES: No scleral icterus. No injection or drainage. NECK: Supple, trachea midline. No JVD or lymphadenopathy. CARDIOVASCULAR: Regular rate and rhythm without murmurs, gallops, or rubs. RESPIRATORY: Poor air entry. Mild wheezes on expiration. GASTROINTESTINAL: Abdomen soft, non-tender, nondistended. MUSCULOSKELETAL: No cyanosis, or edema. BACK: Nontender without obvious deformity. No CVA tenderness. Pt update on day of discharge Ms. Pena is doing well. Sitting in her chair. No acute concerns. Denies any chest pain, fever, chills. Hospital Course 76-year-old female with a PMH of HTN, Major Depression and COPD, O2 Dependent, who was brought to the ER by EMS secondary to increasing SOB and cough. Acute on Chronic Respiratory Failure secondary to Severe COPD Exacerbation: O2 Dependent on 2.5-3L NC at home. RR 28 upon arrival with labored breathing, + wheezing, decreased breath sounds on exam. CXR w/ hyperinflation/COPD, images reviewed by me. Continue IV Solu-Medrol, DuoNeb, Symbicort, Mucinex, Levaquin 750mg daily. Needs to follow with pulmonology as outpatient. Continue Acapella. Repeat CXR shows severe emphysema. - Discussed with CM. SNF arranged. - PO steroid and PO levaquin on discharge. HTN: Resume home medications, monitor BP. Well controlled. Depression: Resume home Paroxetine. No acute depression noted. Pt Condition on Discharge: Good Discharge Disposition: Discharge to SNF Discharge Time: > 30 minutes Discharge Instructions DIET: Follow Instructions for: As Tolerated, No Restrictions Activities you can perform: Regular-No Restrictions Follow up Referrals: PCP Follow-up - 2 Weeks New Medications: Prednisone (Prednisone) 20 Mg Tab 20 MG PO BID COPD #10 Ref 0 TAB Hydrocodone-Acetaminophen (Hydrocodone-Acetaminophen) 5-325 mg Tab 1 TAB PO Q6HR PRN pain #20 TAB Levofloxacin (Levaquin) 750 Mg Tab 750 MG PO DAILY@11 Infection #5 TAB Continued Medications: Amlodipine (Amlodipine) 5 Mg Tab 5 MG PO DAILY Blood Pressure Management #30 Ref 0 TAB Carvedilol (Carvedilol) 12.5 Mg Tab 12.5 MG PO AC BREAKFAST #60 Ref 0 TAB Fluticasone-Vilanterol Inh (Breo Ellipta Inh) 200-25 Mcg/Act Inh 1 PUFF INH DAILY Use daily at the same time. #1 Ref 0 INHALER Gabapentin (Gabapentin) 600 Mg Tab 600 MG PO BID #60 Ref 0 TAB Ibuprofen (Ibuprofen) 600 Mg Tab 600 MG PO Q6H PRN Pain/Inflammation #40 Ref 0 TAB Lorazepam (Lorazepam) 0.5 Mg Tab 0.5 MG PO HS PRN ANXIETY AND/OR INSOMNIA Ref 0 TAB Lovastatin (Lovastatin) 20 Mg Tab 20 MG PO DAILY Cholesterol Management #30 Ref 0 TAB Montelukast (Montelukast) 10 Mg Tab 10 MG PO HS #30 Ref 0 TAB Nitroglycerin SL (Nitrostat SL) 0.4 Mg Subl 0.4 MG SL DIRECTED 1 tablet under the tongue as needed for chest pain. Repeat every 5 minutes for a total of 3 DOSES or call 911 if NO relief. PRN CHEST PAIN #100 Ref 0 TAB.SL Pantoprazole (Pantoprazole) 40 Mg Tab 40 MG PO DAILY Reflux #30 Ref 0 TAB Paroxetine (Paroxetine) 20 Mg Tab 20 MG PO DAILY #30 Ref 0 TAB Ropinirole (Ropinirole) 0.5 Mg Tab 0.5 MG PO HS #30 Ref 0 TAB Discontinued Medications: Carvedilol (Carvedilol) 6.25 Mg Tab 6.25 MG PO HS #60 Ref 0 TAB Sulfamethoxazole-Trimethoprim (Sulfamethoxazole-Trimethoprim) 800-160 Mg Tab 1 TAB PO BID Infection Ref 0 TAB Tramadol (Tramadol) 50 Mg Tab 50 MG PO Q6H PRN PAIN Ref 0 TAB Ramy Parada DO Jan 31, 2017 10:56
[2017-01-31 12:00] VITALS: BP 127/58; PULSE 69; RESP 18; TEMP 97.8; O2SAT 98
[2017-01-31] MEDS: ACETAMINOPHEN/HYDROcodone 325 MG/5 MG TAB PO PRN (13:51)
[2017-01-31 16:00] VITALS: BP 120/58; PULSE 64; RESP 18; TEMP 98.9; O2SAT 98
[2017-01-31 16:26] VITALS: O2SAT 95
== END 2017-01-31 17:15 | DRG 190 ==
LOC: NEPE 21:23 → NEDA 23:24 → NEPGCP 01-28 00:48 → OBSVTOIN 01-29 10:30 → N04B 01-29 21:30
PROVIDERS: ADMIT Hospitalist; ATTEND Hospitalist
DX: J44.1 Chronic obstructive pulmonary disease with (acute) exacerbation (principal); J96.20 Acute and chronic respiratory failure, unspecified whether with hypoxia or hypercapnia; Z99.81 Dependence on supplemental oxygen; I10 Essential (primary) hypertension; F32.9 Major depressive disorder, single episode, unspecified; F17.210 Nicotine dependence, cigarettes, uncomplicated; S39.012A Strain of muscle, fascia and tendon of lower back, initial encounter; M62.830 Muscle spasm of back; X58.XXXA Exposure to other specified factors, initial encounter
CPT/HCPCS: 71010; 71020; 80048; 80053; 85007; 85025; 85027; 87804; 93005; 94640; 94664; 94667; 94668; G0378; J2920; J2930; J7040

== ENCOUNTER 2017-11-11 14:52 | Inpatient (IN) | payer OTHER, MEDICARE ==
[2017-11-11] MEDS ORDERED: SODIUM CHLORIDE 0.9% FLUSH 10 ML FLUSH IVF (15:15)
[2017-11-11] MEDS: RESP: ALBUTEROL 2.5 MG/IPRATROPIUM 0.5 MG NEB (SCH) INH ×2 (15:20)
[2017-11-11] MEDS: methylPREDNISolone SOD SUCC 125 MG/2 ML VIAL IV PUSH (15:44)
[2017-11-11 15:51] LABS: AUTOMATED NEUTROPHIL # 16.4 TH/MM3 (1.8-7.7); BASOPHIL % 0.2 % (0.0-2.0); EOSINOPHIL % 0.1 % (0.0-4.0); HEMATOCRIT 47.1 % (35.0-46.0); HEMO FLAGS DIFF FINAL; HEMOGLOBIN 14.6 GM/DL (11.6-15.3); LYMPHOCYTE # 0.5 TH/MM3 (1.0-4.8); MEAN CELL VOLUME 94.6 FL (80.0-100.0); MEAN CORPUSCULAR HEMOGLOBIN 29.4 PG (27.0-34.0); MEAN CORPUSCULAR HGB CONC 31.1 % (32.0-36.0); MEAN PLATELET VOLUME 8.4 FL (7.0-11.0); MONO % 2.5 % (0.0-8.0); MONOCYTE # 0.4 TH/MM3 (0-0.9); NEUT % 94.2 % (16.0-70.0); PLATELET COUNT 172 TH/MM3 (150-450); RED BLOOD COUNT 4.98 MIL/MM3 (4.00-5.30); RED CELL DISTRIBUTION WIDTH 15.8 % (11.6-17.2); WHITE BLOOD COUNT 17.4 TH/MM3 (4.0-11.0)
[2017-11-11 15:59] LABS: APTT (PATIENT) 24.5 SEC (24.3-30.1); PROTHROMBIN TIME - PATIENT 10.6 SEC (9.8-11.6)
[2017-11-11 16:15] LABS: ALBUMIN 2.8 GM/DL (3.4-5.0); ALT (GPT) 30 U/L (10-53); ANION GAP 11 MEQ/L (5-15); AST (GOT) 12 U/L (15-37); BICARBONATE 31.4 MEQ/L (21.0-32.0); BLOOD UREA NITROGEN 49 MG/DL (7-18); CHLORIDE 101 MEQ/L (98-107); CREATININE 2.56 MG/DL (0.50-1.00); GLOMERULAR FILTRATION RATE 18 ML/MIN (>89); GLUCOSE,RANDOM 174 MG/DL (74-106); POTASSIUM 5.2 MEQ/L (3.5-5.1); SODIUM (NA) 143 MEQ/L (136-145)
[2017-11-11 16:19] LABS: ALKALINE PHOSPHATASE 78 U/L (45-117); TOTAL BILIRUBIN ADULT 0.3 MG/DL (0.2-1.0); TOTAL PROTEIN 6.3 GM/DL (6.4-8.2); TROPONIN I 0.16 NG/ML (0.02-0.05)
[2017-11-11 16:25] LABS: CREATINE KINASE 33 U/L (26-192)
[2017-11-11 16:25] LABS: B-TYPE NATRIURETIC PEPTIDE 802 PG/ML (0-100)
[2017-11-11] MEDS: SODIUM CHLOR 0.9% 1000 ML INJ 1,000 ML IV (16:58)
[2017-11-11] MEDS: AZITHROMYCIN INJ 500 MG in SODIUM CHLOR 0.9% 250 ML INJ 250 ML IV (16:59)
[2017-11-11] MEDS: CEFEPIME INJ 2,000 MG in SODIUM CHLORIDE 0.9% INJ 100 ML IV (18:22)
[2017-11-11] MEDS ORDERED: Vancomycin Consult Pharmacy 1 EA OTHER (19:30)
[2017-11-11] MEDS ORDERED: ACETAMINOPHEN 325 MG TAB PO ×2 (19:45)
[2017-11-11] MEDS ORDERED: ACETAMINOPHEN/HYDROcodone 325 MG/5 MG TAB PO (19:45)
[2017-11-11] MEDS ORDERED: NALOXONE HCL 0.4 MG/ML AMP IV PUSH (19:45)
[2017-11-11] MEDS ORDERED: SODIUM CHLORIDE 0.9% FLUSH 10 ML FLUSH IV FLUSH (19:45)
[2017-11-11] MEDS ORDERED: ONDANSETRON HCL 4 MG/2 ML VIAL IVP (19:45)
[2017-11-11] MEDS: RESP: ALBUTEROL 2.5 MG/IPRATROPIUM 0.5 MG NEB (SCH) NEB (20:00)
[2017-11-11] MEDS: SODIUM CHLOR 0.45% 1000 ML INJ 1,000 ML IV (20:20)
[2017-11-11] MEDS: HEPARIN SODIUM - SQ 10,000 UNITS/ML VIAL SQ (20:21)
[2017-11-11] MEDS: NICOTINE 14 MG/24 HR PATCH T-DERMAL (20:21)
[2017-11-11] MEDS: PHARMACY ORDERED LAB (20:45)
[2017-11-11] MEDS: SODIUM CHLORIDE 0.9% FLUSH 10 ML FLUSH IV FLUSH (21:00)
[2017-11-11] MEDS: INSULIN ASPART SUPPLEMENTAL SCALE SQ (21:00)
[2017-11-11] MEDS: VANCOMYCIN INJ 1,250 MG in SODIUM CHLOR 0.9% 250 ML INJ 250 ML IV (23:21)
[2017-11-11] MEDS: FAMOTIDINE 20 MG TAB PO (23:22)
[2017-11-11] MEDS: DOCUSATE SODIUM 50 MG/SENNA 8.6 MG TAB PO (23:22)
[2017-11-11] MEDS: MONTELUKAST SODIUM 10 MG TAB PO (23:22)
[2017-11-11] MEDS: methylPREDNISolone SOD SUCC 40 MG/1 ML VIAL IV PUSH (23:27)
[2017-11-12] MEDS: PIPERACIL-TAZO 2.25 GM PREMIX 50 ML IV ×5 (01:14→23:29)
[2017-11-12] MEDS: HEPARIN SODIUM - SQ 10,000 UNITS/ML VIAL SQ ×3 (04:18→18:18)
[2017-11-12] MEDS: methylPREDNISolone SOD SUCC 40 MG/1 ML VIAL IV PUSH ×3 (04:19→20:38)
[2017-11-12 04:22] LABS: TROPONIN I 0.06 NG/ML (0.02-0.05)
[2017-11-12 04:25] LABS: BASOPHIL % 0.2 % (0.0-2.0); HEMATOCRIT 41.3 % (35.0-46.0); HEMO FLAGS DIFF FINAL; HEMOGLOBIN 13.5 GM/DL (11.6-15.3); LYMPH % 2.6 % (9.0-44.0); LYMPHOCYTE # 0.3 TH/MM3 (1.0-4.8); MEAN CELL VOLUME 92.5 FL (80.0-100.0); MEAN CORPUSCULAR HEMOGLOBIN 30.2 PG (27.0-34.0); MEAN CORPUSCULAR HGB CONC 32.7 % (32.0-36.0); MEAN PLATELET VOLUME 9.6 FL (7.0-11.0); MONO % 0.6 % (0.0-8.0); MONOCYTE # 0.1 TH/MM3 (0-0.9); NEUT % 96.6 % (16.0-70.0); PLATELET COUNT 112 TH/MM3 (150-450); RED BLOOD COUNT 4.47 MIL/MM3 (4.00-5.30); RED CELL DISTRIBUTION WIDTH 15.4 % (11.6-17.2); WHITE BLOOD COUNT 12.4 TH/MM3 (4.0-11.0)
[2017-11-12 04:32] LABS: ALBUMIN 2.6 GM/DL (3.4-5.0); ALT (GPT) 25 U/L (10-53); ANION GAP 10 MEQ/L (5-15); AST (GOT) 10 U/L (15-37); BICARBONATE 28.1 MEQ/L (21.0-32.0); BLOOD UREA NITROGEN 50 MG/DL (7-18); CALCIUM 8.3 MG/DL (8.5-10.1); CHLORIDE 107 MEQ/L (98-107); CREATININE 1.72 MG/DL (0.50-1.00); GLOMERULAR FILTRATION RATE 29 ML/MIN (>89); GLUCOSE,RANDOM 165 MG/DL (74-106); POTASSIUM 4.3 MEQ/L (3.5-5.1); SODIUM (NA) 145 MEQ/L (136-145)
[2017-11-12 04:36] LABS: ALKALINE PHOSPHATASE 64 U/L (45-117); TOTAL BILIRUBIN ADULT 0.4 MG/DL (0.2-1.0); TOTAL PROTEIN 5.9 GM/DL (6.4-8.2)
[2017-11-12] MEDS: INSULIN ASPART SUPPLEMENTAL SCALE SQ ×4 (07:44→21:00)
[2017-11-12] MEDS: RESP: ALBUTEROL 2.5 MG/IPRATROPIUM 0.5 MG NEB (SCH) NEB ×2 (07:51→19:55)
[2017-11-12] MEDS: SODIUM CHLORIDE 0.9% FLUSH 10 ML FLUSH IV FLUSH ×2 (09:00→20:37)
[2017-11-12] MEDS ORDERED: NAMENDA 14 MG PO (09:00)
[2017-11-12] MEDS: SODIUM CHLOR 0.45% 1000 ML INJ 1,000 ML IV ×2 (09:34→20:39)
[2017-11-12] MEDS: CHOLECALCIFEROL (VIT D3) 5000 UNIT CAP PO (09:37)
[2017-11-12] MEDS: PRAVASTATIN SOD 20 MG TAB PO (09:37)
[2017-11-12] MEDS: THIAMINE HCL 100 MG TAB PO (09:37)
[2017-11-12] MEDS: DOCUSATE SODIUM 50 MG/SENNA 8.6 MG TAB PO ×2 (09:38→20:38)
[2017-11-12] MEDS: PARoxetine HCL 20 MG TAB PO (09:39)
[2017-11-12] MEDS: NICOTINE 14 MG/24 HR PATCH T-DERMAL (09:40)
[2017-11-12] MEDS: REMOVE OLD PATCH T-DERMAL (09:40)
[2017-11-12] MEDS: RESP: ALBUTEROL 2.5 MG/IPRATROPIUM 0.5 MG NEB (PRN) NEB (11:48)
[2017-11-12] MEDS: clonazePAM 0.5 MG TAB PO (11:48)
[2017-11-12] MEDS: ACETAMINOPHEN/HYDROcodone 325 MG/10 MG TAB PO (16:19)
[2017-11-12] MEDS: FAMOTIDINE 20 MG TAB PO (20:38)
[2017-11-12] MEDS: MONTELUKAST SODIUM 10 MG TAB PO (20:38)
[2017-11-13] MEDS: HEPARIN SODIUM - SQ 10,000 UNITS/ML VIAL SQ ×3 (04:06→18:08)
[2017-11-13] MEDS: methylPREDNISolone SOD SUCC 40 MG/1 ML VIAL IV PUSH ×3 (04:07→22:46)
[2017-11-13] MEDS: PIPERACIL-TAZO 2.25 GM PREMIX 50 ML IV ×3 (04:07→18:07)
[2017-11-13] MEDS: RESP: ALBUTEROL 2.5 MG/IPRATROPIUM 0.5 MG NEB (PRN) NEB (04:12)
[2017-11-13] MEDS: ACETAMINOPHEN/HYDROcodone 325 MG/10 MG TAB PO ×2 (04:13→12:24)
[2017-11-13] MEDS: clonazePAM 0.5 MG TAB PO ×2 (04:45→22:44)
[2017-11-13] MEDS: RESP: ALBUTEROL 2.5 MG/IPRATROPIUM 0.5 MG NEB (SCH) NEB ×3 (08:00→19:06)
[2017-11-13] MEDS: INSULIN ASPART SUPPLEMENTAL SCALE SQ ×4 (08:00→21:00)
[2017-11-13] MEDS: SODIUM CHLORIDE 0.9% FLUSH 10 ML FLUSH IV FLUSH ×2 (08:19→21:00)
[2017-11-13] MEDS: NICOTINE 14 MG/24 HR PATCH T-DERMAL (08:21)
[2017-11-13] MEDS: PRAVASTATIN SOD 20 MG TAB PO (08:22)
[2017-11-13] MEDS: THIAMINE HCL 100 MG TAB PO (08:22)
[2017-11-13] MEDS: CHOLECALCIFEROL (VIT D3) 5000 UNIT CAP PO (08:22)
[2017-11-13] MEDS: PARoxetine HCL 20 MG TAB PO (08:22)
[2017-11-13] MEDS: DOCUSATE SODIUM 50 MG/SENNA 8.6 MG TAB PO ×2 (08:22→21:00)
[2017-11-13] MEDS: REMOVE OLD PATCH T-DERMAL (08:23)
[2017-11-13] MEDS: LORazepam 0.5 MG TAB PO (12:17)
[2017-11-13] MEDS: FAMOTIDINE 20 MG TAB PO (22:44)
[2017-11-13] MEDS: MONTELUKAST SODIUM 10 MG TAB PO (22:45)
[2017-11-13] MEDS: VANCOMYCIN INJ 750 MG in SODIUM CHLOR 0.9% 250 ML INJ 250 ML IV (22:50)
[2017-11-14] MEDS: ACETAMINOPHEN/HYDROcodone 325 MG/10 MG TAB PO ×3 (00:05→09:17)
[2017-11-14] MEDS: PIPERACIL-TAZO 2.25 GM PREMIX 50 ML IV ×2 (00:06→04:41)
[2017-11-14] MEDS: HEPARIN SODIUM - SQ 10,000 UNITS/ML VIAL SQ ×2 (04:42→13:09)
[2017-11-14] MEDS: methylPREDNISolone SOD SUCC 40 MG/1 ML VIAL IV PUSH (04:52)
[2017-11-14] MEDS: INSULIN ASPART SUPPLEMENTAL SCALE SQ ×2 (08:00→12:00)
[2017-11-14] MEDS: SODIUM CHLORIDE 0.9% FLUSH 10 ML FLUSH IV FLUSH (08:23)
[2017-11-14] MEDS: CHOLECALCIFEROL (VIT D3) 5000 UNIT CAP PO (08:24)
[2017-11-14] MEDS: NICOTINE 14 MG/24 HR PATCH T-DERMAL (08:24)
[2017-11-14] MEDS: DOCUSATE SODIUM 50 MG/SENNA 8.6 MG TAB PO (08:24)
[2017-11-14] MEDS: PARoxetine HCL 20 MG TAB PO (08:24)
[2017-11-14] MEDS: PRAVASTATIN SOD 20 MG TAB PO (08:24)
[2017-11-14] MEDS: REMOVE OLD PATCH T-DERMAL (08:25)
[2017-11-14] MEDS: THIAMINE HCL 100 MG TAB PO (08:37)
[2017-11-14 09:01] LABS: CREATININE 0.57 MG/DL (0.50-1.00); GLOMERULAR FILTRATION RATE 103 ML/MIN (>89)
[2017-11-14] MEDS: RESP: ALBUTEROL 2.5 MG/IPRATROPIUM 0.5 MG NEB (SCH) NEB ×2 (10:19→12:25)
[2017-11-14] MEDS: clonazePAM 0.5 MG TAB PO (15:17)
[2017-11-14] MEDS ORDERED: AMOXICIL-CLAVU 400 MG/5 ML LIQ 100 ML BTL PO (21:00)
[2017-11-15] MEDS ORDERED: PRAVASTATIN SOD 20 MG TAB PO (21:00)
== END 2017-11-14 16:00 | DRG 177 ==
LOC: NEPC 14:52 → NEDA 17:47 → N07A 22:38
PROC: 5A09357 Assistance with Respiratory Ventilation, Less than 24 Consecutive Hours, Continuous Positive Airway Pressure (ICD-10-PCS; principal; 2017-11-11)
DX: J69.0 Pneumonitis due to inhalation of food and vomit (principal); J96.00 Acute respiratory failure, unspecified whether with hypoxia or hypercapnia; N17.9 Acute kidney failure, unspecified; I95.9 Hypotension, unspecified; Z99.81 Dependence on supplemental oxygen; F03.90 Unspecified dementia, unspecified severity, without behavioral disturbance, psychotic disturbance, mood disturbance, and anxiety; E86.0 Dehydration; I45.10 Unspecified right bundle-branch block; J98.11 Atelectasis; J43.9 Emphysema, unspecified; R74.8 Abnormal levels of other serum enzymes; I25.10 Atherosclerotic heart disease of native coronary artery without angina pectoris; R73.9 Hyperglycemia, unspecified; I10 Essential (primary) hypertension; F32.9 Major depressive disorder, single episode, unspecified; F17.210 Nicotine dependence, cigarettes, uncomplicated; T38.0X5A Adverse effect of glucocorticoids and synthetic analogues, initial encounter; M19.90 Unspecified osteoarthritis, unspecified site; Z66 Do not resuscitate
CPT/HCPCS: 71045; 71250; 80053; 82550; 82565; 82948; 83735; 83880; 84484; 85025; 85610; 85730; 87040; 87804; 87804-59; 92610-GN; 93005; 94002; 94150; 94640; 94664; 96361; 96365; 96374; 97110-GO; 97110-GP; 97163-GP; 97167-GO; 97530-GP; 97535-GO; 99285-25